=== PATIENT | female | born 1990 | race Caucasian/White ===

== ENCOUNTER 2018-11-30 11:34 | Emergency (ER) | payer OTHER ==
[2018-11-30] MEDS ORDERED: CLINDAMYCIN 600 MG/D5W RTU 600 MG/50 ML RTUPB IV ONE (12:59)
[2018-11-30] MEDS ORDERED: KETOROLAC TROMETHAMINE INJ/PF 30 MG/1 ML SDV IV ONE (12:59)
[2018-11-30] MEDS ORDERED: DEXAMETHASONE SOD PHOS INJ 10 MG/1 ML VIAL IV ONE (12:59)
--- NOTE | 2018-11-30 13:03 | ER Document Report ---
ED Medical Screen (RME) - General Chief Complaint: Abscess Stated Complaint: SORE THROAT/EYE PAIN Time Seen by Provider: 11/30/18 12:54 Mode of Arrival: Ambulatory Information source: Patient TRAVEL OUTSIDE OF THE [place] IN LAST 30 DAYS: No - HPI Patient complains to provider of: RIGHT EYE REDNESS, RIGHT THROAT PAIN Notes: 11/30/18 13:01 Patient here with 2 complaints. Patient states she was having a sore throat and some right eye irritation on Wednesday, she was seen at primary care and was started on erythromycin eye ointment. No rapid strep was performed, she was told she had a viral sore throat. She states that now her right eye seems to be more red and irritated than it was before, and she also has a right-sided sore throat. She was seen at urgent care and was sent here for concerns for possible peritonsillar abscess. No difficulty breathing or swallowing. No chest pain or shortness of breath. Exam No distress, nontoxic-appearing. Right eye with injection worse at the inferior aspect, but generalized injection identified. No obvious foreign body identified. No periorbital redness or swelling. Right-sided tonsillar swelling with exudate and swelling to the soft palate. No trismus or drooling. Airway patent. No stridor. Plan CBC, CMP, IV Decadron and clindamycin. Patient will require a further eye exam by provider in the back. Provider and back and determine if advanced imaging is needed regarding her possible peritonsillar abscess/cellulitis. An initial examination was made on the patient as part of the triage process, and it was determined a more comprehensive evaluation was necessary. Initial labs were ordered and patient was transferred to another provider in the ED who assumed care and finished evaluation and plan. - Related Data Allergies/Adverse Reactions: No Known Allergies Allergy (Unverified 11/30/18 11:50) Past Medical History - Social History Chew tobacco use (# tins/day): No Frequency of alcohol use: None Drug Abuse: Bath salts Renal/ Medical History: Denies: Hx Peritoneal Dialysis Physical Exam - Vital signs Vitals: Temp Pulse Resp BP Pulse Ox 98.6 F 108 H 18 116/77 98 11/30/18 11:59 11/30/18 11:59 11/30/18 11:59 11/30/18 11:59 11/30/18 11:59 Course - Vital Signs Vital signs: Temp Pulse Resp BP Pulse Ox 98.6 F 108 H 18 116/77 98 11/30/18 11:59 11/30/18 11:59 11/30/18 11:59 11/30/18 11:59 11/30/18 11:59
[2018-11-30 14:02] LABS: ABSOLUTE LYMPHOCYTES (AUTO) 1.3 10^3/uL (0.5-4.7); ABSOLUTE MONOCYTES (AUTO) 1.2 10^3/uL (0.1-1.4); ABSOLUTE NEUT (AUTO) 11.8 10^3/uL (1.7-8.2); BASOPHILS % (AUTO) 0.2 % (0-2); HEMATOCRIT 37.8 % (36.0-47.0); HEMOGLOBIN 13.1 g/dL (12.0-15.5); LYMPHOCYTES % (AUTO) 9.2 % (13-45); MEAN CORPUSCULAR HEMOGLOBIN 31.3 pg (27.0-33.4); MEAN CORPUSCULAR HGB CONC 34.6 g/dL (32.0-36.0); MEAN CORPUSCULAR VOLUME 90 fl (80-97); MONOCYTES % (AUTO) 8.1 % (3-13); PLATELET COUNT 289 10^3/uL (150-450); RED BLOOD COUNT 4.18 10^6/uL (3.72-5.28); RED CELL DISTRIBUTION WIDTH 12.9 % (11.5-14.0); SEGMENTED NEUTROPHILS % (AUTO) 82.5 % (42-78); TOTAL CELLS COUNTED % (AUTO) 100 %; WHITE BLOOD COUNT 14.3 10^3/uL (4.0-10.5)
[2018-11-30 14:26] LABS: ALANINE AMINOTRANSFERASE 17 U/L (9-52); ALBUMIN 4.1 g/dL (3.5-5.0); ALKALINE PHOSPHATASE 86 U/L (38-126); ANION GAP 14 (5-19); ASPARTATE AMINO TRANSFERASE 17 U/L (14-36); BILIRUBIN,DIRECT 0.3 mg/dL (0.0-0.4); BILIRUBIN,TOTAL 0.7 mg/dL (0.2-1.3); BLOOD UREA NITROGEN 13 mg/dL (7-20); CALCIUM 9.3 mg/dL (8.4-10.2); CARBON DIOXIDE 25 mmol/L (22-30); CHLORIDE 99 mmol/L (98-107); GLUCOSE 90 mg/dL (75-110); POTASSIUM 3.7 mmol/L (3.6-5.0); SODIUM 137.8 mmol/L (137-145); TOTAL PROTEIN 8.1 g/dL (6.3-8.2)
--- NOTE | 2018-11-30 16:57 | RADIOLOGY REPORT (SQ) ---
EXAM DESCRIPTION: CT SOFT TISSUE NECK WITH COMPLETED DATE/TIME: 11/30/2018 4:38 pm REASON FOR STUDY: right sided peritonsillar abscess/ IV CONTRAST ONL COMPARISON: None. TECHNIQUE: Post IV contrasted scanning from skull base through lung apices with review of bone, soft tissue and lung windows. Reconstructed coronal and sagittal MPR images reviewed. All images stored on PACS. All CT scanners at this facility use dose modulation, iterative reconstruction, and/or weight based d osing when appropriate to reduce radiation dose to as low as reasonably achievable (ALARA). [facility]: Dose Right [facility]: CareDose [facility]: Dose Right [facility]: Teradose 4D [facility]: Edlogics CONTRAST TYPE AND DOSE: contrast/concentration: Isovue 350.00 mg/ml; Total Contrast Delivered: 75.0 ml; Total Saline Delivered: 55.0 ml RENAL FUNCTION: None required. The patient is less than 50 years old. RADIATION DOSE: CT Rad equipment meets quality standard of care and radiation dose reduction techniq ues were employed. CTDIvol: 10.0 mGy. DLP: 312 mGy-cm. . LIMITATIONS: None. FINDINGS: SKULL BASE: Intact. MAJOR SALIVARY GLANDS: No solid or cystic masses. No inflammatory changes. LYMPHADENOPATHY: Right greater than left enlarged increased number of nodes. Largest is on the right at the angle of the mandible just posterior to the submandibular gland. This measures up to 1.7 cm in short axis. MUCOSAL MASSES OR ASYMMETRY: Enlarged right tonsil. Heterogeneously enhancing hypodense mass within measures just over 2 cm. This does not look like fluid density. Mild airway compromise results. No prevertebral or retropharyngeal fluid. LARYNX/CORDS: No abnormal findings. VASCULAR STRUCTURES: The major vessels are patent. LUNG APICES: Clear. BONES: Intact. THYROID: Normal size. No masses. PARANASAL SINUSES: Clear. OTHER: No other significant finding. IMPRESSION: 1. Right tonsillitis. Focal circumscribed 2 cm heterogeneous low density mass within the right tonsi l suggests phlegmon or developing abscess. Mild airway compromise. TECHNICAL DOCUMENTATION: JOB ID: [id number] Quality ID # [id number]: Final reports with documentation of one or more dose reduction techniques (e.g., Au tomated exposure control, adjustment of the mA and/or kV according to patient size, use of iterative reconstruction technique) 2010 [employer]- All Rights Reserved Reading location - IP/workstation name: [email or web address]
--- NOTE | 2018-11-30 17:27 | ER Document Report ---
ED ENT - General Chief Complaint: Abscess Stated Complaint: SORE THROAT/EYE PAIN Time Seen by Provider: 11/30/18 12:54 Mode of Arrival: Ambulatory Information source: Patient Notes: Patient is a 28-year-old female comes emergency room complaining of throat pain. She also comes with a second complaint of having right eye irritation. Patient states that she went to [facility] last Wednesday and he looked dry and put her on an ophthalmic ointment. They also looked her throat told it was a viral presentation may put her on nothing for that. Patient developed a sore throat with swelling of her throat over the next 2 days and today she had difficult time swallowing her own secretions but she was able to manage it. She also states that the eye does not feel like it is getting a whole lot better though it has gotten some better. She has denied any pain or discomfort in the eye at any time it was just red. Today patient went to urgent care center because she could not get into the [facility] and after the provider looked at her there told her she needed to come directly to the emergency room because he felt she had a peritonsillar or a severe tonsillitis minimally. 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 TRAVEL OUTSIDE OF THE [place] IN LAST 30 DAYS: No - HPI Patient complains to provider of: Throat problem Onset: Other - 3 days ago Onset/Duration: Gradual Quality of pain: Achy Severity: Moderate Pain Level: 3 Context: denies: Allergies Location of pain: Throat Associated symptoms: Difficulty swallowing, Swollen glands. denies: Face swelling, Foreign body, Hearing loss, Jaw pain, Jaw swelling, Stiff neck, Tinnitus Similar symptoms previously: Yes Recently seen / treated by doctor: Yes - Related Data Allergies/Adverse Reactions: No Known Allergies Allergy (Unverified 11/30/18 11:50) Past Medical History - General Information source: Patient - Social History Smoking Status: Never Smoker Chew tobacco use (# tins/day): No Frequency of alcohol use: None Drug Abuse: Bath salts Lives with: Family Family History: Reviewed & Not Pertinent Patient has suicidal ideation: No Patient has homicidal ideation: No Renal/ Medical History: Denies: Hx Peritoneal Dialysis Past Surgical History: Reports: Hx Oral Surgery Review of Systems - Review of Systems Constitutional: No symptoms reported EENT: Eye discharge, Throat pain, Difficulty swallowing, Throat swelling Cardiovascular: No symptoms reported Respiratory: No symptoms reported Gastrointestinal: No symptoms reported Genitourinary: No symptoms reported Female Genitourinary: No symptoms reported Musculoskeletal: No symptoms reported Skin: No symptoms reported Hematologic/Lymphatic: No symptoms reported Neurological/Psychological: No symptoms reported -: Yes All other systems reviewed and negative Physical Exam - Vital signs Vitals: Temp Pulse Resp BP Pulse Ox 98.6 F 108 H 18 116/77 98 11/30/18 11:59 11/30/18 11:59 11/30/18 11:59 11/30/18 11:59 11/30/18 11:59 Interpretation: Tachycardic - Notes Notes: PHYSICAL EXAMINATION: GENERAL: Well-appearing, well-nourished and in no acute distress. Uncomfortable appearing HEAD: Atraumatic, normocephalic. EYES: Pupils equal round and reactive to light, extraocular movements intact, conjunctiva are normal. ENT: Examination patient's area of concern is her posterior pharynx. Examination shows the patient has a large right-sided tonsillitis with a exudate that covers the entire area of the tonsil that is moderately swollen. Left side is normal in appearance no exudate noted on that side. Presentation is that of a peritonsillar type abscess. Uvula is midline it is not displaced at this time by the moderate sized peritonsillar abscess. And the airway is currently patent. Examination was done after patient is received steroids and antibiotics. She also states she feels much better after receiving steroids and antibiotics NECK: Examination patient's neck shows she has some prominent anterior cervical lymphadenopathy and some moderate tenderness along the chain as well. Left side is normal appearance. LUNGS: Breath sounds clear to auscultation bilaterally and equal. No wheezes rales or rhonchi. HEART: Tachycardic rate and rhythm without murmurs Female : deferred NEUROLOGICAL: Normal speech, normal gait. Normal sensory, motor exams PSYCH: Normal mood, normal affect. SKIN: Warm, Dry, normal turgor, no rashes or lesions noted. Course - Re-evaluation Re-evalutation: 11/30/18 17:31 I discussed case with Dr. William Chavarria patient's CT report showed right tonsillitis. Focal circumscribed 2 cm heterogeneous low-density mass within the right tonsil suggest phlegmon or developing abscess. Mild airway compromise. Given me telling him that patient felt much better and is able to drink and eat without difficulty that he felt as I do patient is released home on steroids and antibiotic and contact ENT outpatient. He has suggested to use Dr. Jeter the ears nose and throat MD. I have discussed this with the patient she is in favor of this and will contact them tomorrow. 11/30/18 17:33 - Vital Signs Vital signs: Temp Pulse Resp BP Pulse Ox 98.6 F 108 H 18 116/77 98 11/30/18 11:59 11/30/18 11:59 11/30/18 11:59 11/30/18 11:59 11/30/18 11:59 - Laboratory Result Diagrams: 11/30/18 13:41 11/30/18 13:41 Laboratory results interpreted by me: 11/30/18 13:41 WBC 14.3 H Seg Neutrophils % 82.5 H Lymphocytes % 9.2 L Absolute Neutrophils 11.8 H Discharge - Discharge Clinical Impression: Tonsillitis Condition: Stable Disposition: HOME, SELF-CARE Instructions: Tonsillitis ([facility]) Additional Instructions: Home and rest. Medication as prescribed. As we discussed have given the information for Dr. Jeter the ears nose and throat MD. Contact the office tomorrow and see if he can accommodate you. Use warm salt water gargles 3-4 times a day. Please make sure you take all the medication. Should you have any difficulty breathing or swallowing return to the ER sooner or as soon as that starts to become a difficulty. Also take Tylenol alternate with Motrin every 4 hours to keep the fever aches and pains down. Prescriptions: Amox Tr/Potassium Clavulanate [Augmentin 875-125 Tablet] 1 tab PO BID 14 Days #24 tablet Fluconazole [Diflucan] 150 mg PO ONCE PRN #1 tablet PRN Reason: Prednisone 10 mg PO ASDIR 6 Days #1 tab.ds.pk Referrals: FREDDY JETER DO [ASSOCIATE] - Follow up as needed
[2018-11-30 18:10] VITALS: BP 133/79
== END 2018-11-30 18:10 | disposition home or self-care (01) ==
LOC: ER 11:34
DX: J03.90 Acute tonsillitis, unspecified (principal); R13.10 Dysphagia, unspecified; R22.1 Localized swelling, mass and lump, neck
CPT/HCPCS: 99283; 96375; 96365; 36415; 87040; 85025; 80053; 70491; J1885; J1100